=== PATIENT | male | born 1950 | race Caucasian/White ===

== ENCOUNTER → 2024-04-04 12:57 | Outpatient (REF) | payer MEDICARE, BC, SELFPAY | LOC: MRI 3T 12:57 | PROVIDERS: ATTENDING PHYSICIAN Specialist; FAMILY PHYSICIAN Family Medicine | DX: R97.20 Elevated prostate specific antigen [PSA] (principal) | CPT/HCPCS: 72197; A9575 ==

== ENCOUNTER → 2024-05-02 15:03 | Outpatient (REF) | payer MEDICARE, BC, SELFPAY | LOC: CLAB 15:03 | PROVIDERS: ATTENDING PHYSICIAN Specialist | DX: R97.20 Elevated prostate specific antigen [PSA] (principal) | CPT/HCPCS: 88305; 88344 ==